=== PATIENT | female | born 1965 | race Caucasian/White ===

== ENCOUNTER 2024-02-12 15:33 | Emergency (ER) | payer OTHER, MEDICAID, SELFPAY ==
--- NOTE | ~2024-02-12 | XR_ITS ---
EXAMINATION: XR CHEST CLINICAL INFORMATION: Fall. COMPARISON: None available. TECHNIQUE: PA view of the chest was obtained. FINDINGS: No significant abnormality is noted involving the heart, lungs, mediastinum, or soft tissues. Mild degenerative changes of the spine and shoulders, right worse than left. XR/XR chest 1V IMPRESSION: No acute finding. Electronically signed by: Ramesh Alejandre MD 02/12/2024 05:24 PM EDT
--- NOTE | ~2024-02-12 | CT_ITS ---
EXAM: CT HEAD WITHOUT CONTRAST CT CERVICAL SPINE INDICATION: fall TECHNIQUE: A noncontrast CT scan was performed from the skull base to the vertex. A noncontrast CT scan of the cervical spine was performed from the base of the skull through T1 at 2.5 mm and 0.625 mm collimation. Coronal and sagittal reformats were obtained at the acquisition workstation. This CT examination was performed using dose optimization techniques as appropriate, variously including the following: * Automated exposure control * Adjustment of mA and/or kV according to patient size (this includes techniques or standardized protocols for targeted exams where dose is matched to indication/reason for exam; i.e. extremities or head) * Use of iterative reconstruction technique Dose length product is 832 mGy-cm. COMPARISON: None FINDINGS: Head: There is no evidence of acute intracranial hemorrhage or edematous territorial infarction. No abnormal mass effect or midline shift is seen. Newell to white matter differentiation is well preserved. No extra-axial fluid collections are identified. The ventricles are normal in size. No abnormal attenuation in the brain parenchyma. No acute calvarial fracture.. Paranasal sinuses and mastoid air cells are well-aerated. Cervical Spine: The atlantooccipital and atlantoaxial articulations remain well aligned. Straightening of the normal cervical lordosis. Otherwise, there is anatomic alignment of the vertebral bodies and posterior elements. Vertebral body heights are maintained. No evidence of acute fracture. Atlantoaxial degenerative changes. No evidence of acute fracture or subluxation. Mild multilevel disc degenerative changes.. The central bony canal is maintained. No prevertebral soft tissue swelling. The paraspinal soft tissues are unremarkable. No suspicious Leo findings. The visualized lung apices are clear. CT/CT cervical spine wo IV con IMPRESSION: No CT evidence of acute intracranial hemorrhage or to metastatic infarction. No CT evidence of acute cervical spine fracture or malalignment. Mild cervical spondylosis. Electronically signed by: Sunny Chase MD 02/12/2024 05:48 PM EDT
--- NOTE | 2024-02-12 15:42 | ED_ITS ---
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 Patient reports that she was starting a new job today She reports that she got ready for work. 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 ? Related Data Allergies Allergy/AdvReac Type Severity Reaction Status Date / Time No Known Allergies Allergy Verified 02/12/24 15:53 Review of Systems 2 Constitutional: Constitutional: Denies body ache(s), Denies chills, Denies frequent falls and Reports headache(s) Eyes: Eyes: Reports exophthalmos (Right eye only), Reports eye pain and Reports requires corrective lenses ENT: Reports dizziness and Reports headache(s) Cardiovascular: Cardiovascular: Reports syncope and Denies dyspnea Respiratory: Respiratory: Denies dyspnea Gastrointestinal: Gastrointestinal: Reports abdominal pain (This has since resolved) and Denies vomiting Musculoskeletal: Musculoskeletal: Denies back pain Integumentary/Breasts: Skin/Breast: Denies rash and Denies wounds Neurologic: Reports dizziness, Reports syncope, Denies frequent falls and Reports headache(s) PMFSH Social History Social History Advance Directives: No Advance Directives Information Provided: No Do you have a plan to hurt others: No Plan Physical Exam ED Vital Signs: Vital Signs - 24 hr 02/12/24 15:49 Temperature 98 F Pulse Rate 102 H Respiratory Rate 19 Blood Pressure 130/79 Pulse Oximetry 98 Oxygen Delivery Method Room Air BMI result Body Mass Index 24.4 Const General: healthy appearing, comfortable, no acute distress, alert and awake Nutritional Appearance: well nourished Orientation/consciousness: patient oriented x3 HENMT Head: Yes normocephalic and Yes atraumatic Throat: Yes posterior oropharynx normal Eyes Eyelids: Yes eyelids normal Conjunctivae: conjunctivae normal Sclerae: sclerae normal Corneas: corneas normal Pupils: Equal, round and reactive pupils present EOM: EOMs intact bilaterally Neck Neck: Yes full ROM Resp Effort & Inspection: normal respiratory effort, able to speak in complete sentences and not labored Skin General skin exam: elasticity normal Neuro General: patient oriented x3 Cranial nerves: Yes Equal, round and reactive pupils present and Yes Bilaterally intact EOM present Cognition (Neuro): normal cognition Extrem Other: Moving all extremities well without any obvious deformities Course Course Course Narrative: This is an RME done by JERALD Gross: Additional HPI, ROS, PE not included below will be deferred to primary provider. 49 year old female presenting after passing out at work. Pt states she felt off and had stomach pain before loosing consciousness. Pt was at [facility] when this occurred. Pt hit the right side of her head upon fall. Her stomach pain has resolved since the fall. Denies blood thinner use. Plan - imaging, labs Appearance: Alert.? Oriented X3.? No acute cardiopulmonary distress distress.? Head: Normocephalic, atraumatic, no step-offs or deformities Neck: Normal inspection.? Neck supple.? CVS: Pulses normal.? Respiratory: No respiratory distress.? Abdomen: Soft and nontender.? Skin: ? Normal skin color. Extremities: 5/5 strength to bilateral upper and lower extremities Neuro: Oriented X 3.? No motor deficit.? No sensory deficit. Medical Decision Making Medical Decision Making [facility] Narrative: Patient had a witnessed syncopal episode at work. She fell and struck her head, plan for CT scan of the brain and C-spine due to the fall. Plan for cardiac workup including EKG, labs troponin, electrolytes. The patient is currently asymptomatic, vital signs within normal limits. She has no risk factors for PE, never had chest pain to suggest ACS. Her symptoms were likely related to anxiety. Differential Diagnosis Differential Diagnoses: The differential diagnosis associated with the presentation includes Syncope Near-syncope Anxiety Orthostasis Dehydration ALIN Arrhythmia Admission/Observation Consideration of admission/observation: Escalation of care including admission/observation considered Consider admission for syncope, the patient's vital signs/workup are unremarkable, she is currently asymptomatic Lab Data [facility] Lab Attestation statement: I reviewed the patient's lab results. Patient has a mild leukocytosis to 11.4 K. There is no significant anemia. There is no left shift. Patient's chemistries are without significant abnormality. Her random glucose is slightly elevated to 127. Alk phos is slightly elevated to 175 of unclear etiology. Otherwise electrolytes are within normal limits, renal function within normal limits. There is no evidence of ALIN. Troponin is undetectable at < 2.7 and the patient has no chest pain and a nonischemic EKG 02/12/24 16:31 02/12/24 16:31 Labs: Lab Results 02/12/24 Range/Units 16:31 WBC 11.4 H (4.8-10.8) X10*3/uL RBC 5.43 (4.20-5.50) X10*6/uL Hgb 12.8 (12.0-16.0) g/dl Hct 40.3 (37.0-47.0) % MCV 74.2 L (80.0-98.0) fL MCH 23.6 L (27.0-33.0) pg MCHC 31.8 (31.0-35.0) g/dl RDW 14.4 (11.0-16.0) % Plt Count 291 (160-400) X10*3/uL MPV 11.5 (9.4-12.3) fL Immature Gran % (Auto) 0.3 (0.0-0.4) % Neut % (Auto) 71.3 (45-73) % Lymph % (Auto) 23.6 (20-40) % Millard % (Auto) 4.0 (2-11) % Eos % (Auto) 0.4 (0-4) % Baso % (Auto) 0.4 (0-2) % Lymph # (Auto) 2.7 (1.2-4.9) X10*3/uL Millard # (Auto) 0.5 (0.1-1.2) X10*3/uL Eos # (Auto) 0.1 (0.0-0.4) X10*3/uL Baso # (Auto) 0.0 (0.0-0.2) X10*3/uL Abs Immat Gran (auto) 0.03 (0.00-0.03) X10*3/uL Absolute Neuts (auto) 8.1 (2.0-8.3) x10*3/uL Absolute Nucleated RBC 0.000 (0.0-0.012) X10*3/uL Nucleated RBC % (auto) 0.0 (0.0-0.2) /100WBC PT 12.3 (11.1-13.3) SEC INR 1.0 (0.9-1.1) Sodium 140 (135-145) mmol/L Potassium 4.2 (3.3-5.1) mmol/L Chloride 107 (96-108) mmol/L Carbon Dioxide 25 (22-29) mmol/L Anion Gap 12 (12-20) BUN 13 (9-16) mg/dL Creatinine 0.62 (0.5-1.4) mg/dL Estim Creat Clear Calc 82.8 Estimated GFR > 60 Random Glucose 127 H (60-115) mg/dL Calcium 10.1 (8.4-10.2) mg/dL Magnesium 2.0 (1.6-2.6) mg/dL Total Bilirubin 0.3 (0.0-1.0) mg/dL AST 18 (5-31) U/L ALT 26 (0-31) U/L Alkaline Phosphatase 175 H (39-117) U/L Troponin I High Sens < 2.7 (<3.5-17.0) ng/L Total Protein 6.6 (6.5-8.0) g/dL Albumin 4.0 (3.5-5.0) g/dL Independent Interpretation I performed an independent interpretation of an: EKG (Sinus tachycardia rate of 101 beats minute. No ectopy, no ischemic changes) Radiology Impression Discussion of test interpretation with radiology: I have reviewed the radiologist's reading. Radiologist Impression: CT/CT head/brain wo IV con IMPRESSION: No CT evidence of acute intracranial hemorrhage or to metastatic infarction. No CT evidence of acute cervical spine fracture or malalignment. Mild cervical spondylosis. Electronically signed by: Sunny Chase MD 02/12/2024 05:48 PM EDT RP XR/XR chest 1V IMPRESSION: No acute finding. Electronically signed by: Ramesh Alejandre MD 02/12/2024 05:24 PM EDT RP Discharge Plan Discharge Clinical Impression: Syncope Patient Disposition: Home, Self-Care Instructions: Syncope (ED) Additional Instructions: Your workup in the ER today was reassuring. This includes your imaging, EKG, blood work. Follow-up with your primary doctor, return for new or worsening symptoms. I recommend that you see a property management intern if this happens again Follow-up with Dr. Trivedi for any further issues with your eye Referrals: Dangelo Trivedi [Physician] - (Right eye pain ?protrusion x 2 months) Stand Alone Forms: Work/School Release Print Language: Andorran
[2024-02-12 15:49] VITALS: BP 130/79; PULSE 102; RESP 19; TEMP 36.6; O2SAT 98; BMI 24.4
--- NOTE | 2024-02-12 15:52 | ECG_ITS ---
Test Reason : FALL Blood Pressure : / mmHG Vent. Rate : 101 BPM Atrial Rate : 101 BPM P-R Int : 132 ms QRS Dur : 084 ms QT Int : 338 ms P-R-T Axes : 014 009 028 degrees QTc Int : 438 ms Sinus tachycardia Otherwise normal ECG No previous ECGs available Referred By: Melissa Gross Electronically Signed By:TRESSA HELM
[2024-02-12 16:38] LABS: MANUAL DIFF FLAG NO
[2024-02-12 16:44] LABS: Basophils Percent Auto 0.4 % (0-2); Eosinophils Absolute Auto 0.1 X10*3/uL (0.0-0.4); Eosinophils Percent Auto 0.4 % (0-4); Hematocrit 40.3 % (37.0-47.0); Hemoglobin 12.8 g/dl (12.0-16.0); Imm Gran Abs Auto 0.03 X10*3/uL (0.00-0.03); Imm Gran Pct Auto 0.3 % (0.0-0.4); Lymphocytes Absolute Auto 2.7 X10*3/uL (1.2-4.9); Lymphocytes Percent Auto 23.6 % (20-40); Mean Corpuscular HGB Conc 31.8 g/dl (31.0-35.0); Mean Corpuscular Hemoglobin 23.6 pg (27.0-33.0); Mean Corpuscular Volume 74.2 fL (80.0-98.0); Mean Platelet Volume 11.5 fL (9.4-12.3); Monocytes Absolute Auto 0.5 X10*3/uL (0.1-1.2); Neutrophils Absolute Auto 8.1 x10*3/uL (2.0-8.3); Neutrophils Percent Auto 71.3 % (45-73); Platelet Count 291 X10*3/uL (160-400); Red Blood Count 5.43 X10*6/uL (4.20-5.50); Red Cell Distribution Width 14.4 % (11.0-16.0); White Blood Count 11.4 X10*3/uL (4.8-10.8)
[2024-02-12 16:52] LABS: Prothrombin Time 12.3 SEC (11.1-13.3)
[2024-02-12 16:57] LABS: Alanine Aminotransferase 26 U/L (0-31); Alkaline Phosphatase 175 U/L (39-117); Anion Gap 12 (12-20); Aspartate Amino Transferase 18 U/L (5-31); Bilirubin Total 0.3 mg/dL (0.0-1.0); Blood Urea Nitrogen 13 mg/dL (9-16); Calcium 10.1 mg/dL (8.4-10.2); Carbon Dioxide 25 mmol/L (22-29); Chloride 107 mmol/L (96-108); Creatinine Clr Calc Pharmacy 82.8; Estimated Glomerular Filt Rate > 60; Glucose Random 127 mg/dL (60-115); Potassium 4.2 mmol/L (3.3-5.1); Sodium 140 mmol/L (135-145); Total Protein 6.6 g/dL (6.5-8.0)
[2024-02-12 17:00] LABS: Troponin-I High Sensitivity < 2.7 ng/L (<3.5-17.0)
[2024-02-12 21:34] VITALS: BP 128/78; PULSE 86; RESP 16; TEMP 37.1; O2SAT 99
== END 2024-02-12 21:35 | disposition home or self-care (01) ==
PROVIDERS: Physician Assistant; Emergency Provider Emergency Medicine
DX: R55 Syncope and collapse (principal); R42 Dizziness and giddiness; H57.11 Ocular pain, right eye; R00.0 Tachycardia, unspecified
CPT/HCPCS: 36415; 70450; 71045; 72125; 80053; 83735; 84484; 85025; 85610; 93005; 99283; 99284